=== PATIENT | female | born 1950 | race Caucasian/White ===

== ENCOUNTER 2017-06-25 18:49 | Emergency (ER) | payer MEDICARE ==
[~2017-06-25] VITALS: Ht 170.2 cm; Wt 75.0 kg
[~2017-06-25 18:49] MED LIST: ASPIRIN ADULT L81 MG; COUMADIN7.5 MG PO; CRESTOR10 MG PO; LEXAPRO10 MG PO; LEXAPRO20 MG PO; LORTAB 10 PO; PREMARIN0.3 MG PO; PROTONIX40 M2 PO; PROTONIX40 MG PO; TRAVATAN0.0041 OP; TRAZODONE300 MG PO; TYLENOL # 31 TA1 PO; VENTOLIN HFA IN; WELLBUTRIN SR150 MG PO; XANAX1 MG PO
[2017-06-25] MEDS ORDERED: PROAIR HFA108 MCG/AC PO (20:32)
[2017-06-25] MEDS ORDERED: TESSALON PERLE100 MG PO (20:32)
[2017-06-25 20:45] VITALS: BP 101/71
== END 2017-06-25 20:39 | disposition home or self-care (01) ==
LOC: ED 18:49
DX: J44.9 Chronic obstructive pulmonary disease, unspecified (principal); R05 Cough; F32.9 Major depressive disorder, single episode, unspecified; Z95.2 Presence of prosthetic heart valve

== ENCOUNTER 2023-04-03 13:21 | Emergency (ER) | payer MEDICARE ==
[2023-04-03] VITALS (8 sets, daily range): BP systolic 104–138; BP diastolic 42–81
[~2023-04-03] VITALS: Ht 170.2 cm; Wt 79.8 kg
[~2023-04-03 13:21] MED LIST changes: +PROAIR HFA108 MCG/AC PO; +TESSALON PERLE100 MG PO
[2023-04-03] MEDS ORDERED: ORPHENADRINE CITRATE 30 MG/ML AMP IM ONE (14:00)
[2023-04-03] MEDS ORDERED: HYDROcodone 7.5 MG/Acetaminophen 325 MG/COMBO PO ONE (14:00)
[2023-04-03] MEDS ORDERED: MEDDOSEPAK PO (15:37)
[2023-04-03] MEDS ORDERED: METHOCARBAMOL500 MG PO (15:37)
[2023-04-03] MEDS ORDERED: TRAMADOL HYDROC50 M1 PO (15:37)
== END 2023-04-03 16:06 | disposition home or self-care (01) ==
LOC: ED 13:21
DX: M53.3 Sacrococcygeal disorders, not elsewhere classified (principal); J44.9 Chronic obstructive pulmonary disease, unspecified; F32.A Depression, unspecified; W01.0XXA Fall on same level from slipping, tripping and stumbling without subsequent striking against object, initial encounter; Y92.009 Unspecified place in unspecified non-institutional (private) residence as the place of occurrence of the external cause; Z95.2 Presence of prosthetic heart valve

== ENCOUNTER 2024-02-18 15:03 | Emergency (ER) | payer MEDICARE ==
[~2024-02-18] VITALS: Ht 170.2 cm; Wt 78.0 kg
[2024-02-18] VITALS (19 sets, daily range): BP systolic 67–148; BP diastolic 49–87
[~2024-02-18 15:03] MED LIST changes: +MEDDOSEPAK PO; +METHOCARBAMOL500 MG PO; +TRAMADOL HYDROC50 M1 PO
[2024-02-18] MEDS ORDERED: ONDANSETRON HCl 4 MG/2 ML SDV IV STA (16:01)
[2024-02-18] MEDS ORDERED: SODIUM CHLORIDE 0.9% 1,000 ML IV STA (16:01)
[2024-02-18 16:35] LABS: BASO% 0.5 % (0-3); EOS% 0.8 % (0-8); HEMATOCRIT 36.6 % (37.0-47.0); HEMOGLOBIN 11.4 g/dl (12.0-16.0); IMMATURE GRANULOCYTES 0.2 % (0.0-5.0); LYMPH% 21.3 % (15-41); MEAN CELL VOLUME 89.5 fL CALC (80.0-100.0); MEAN CORPUSCULAR HGB 27.9 pG CALC (26.0-32.0); MEAN CORPUSCULAR HGB CONC 31.1 g/dL CAL (32.0-36.0); MONO% 8.1 % (2-13); NEUT# 4.43 thou/uL (2.00-7.15); NEUT% 69.1 % (42-76); RED BLOOD COUNT 4.09 mill/uL (4.20-5.60); RED CELL DISTRI WIDTH 14.9 % (11.5-15.5)
[2024-02-18 16:44] LABS: ALBUMIN 4.6 g/dL (3.2-5.0); ALKALINE PHOSPHATASE 101 u/l (38-126); ANION GAP 13 (6-22 (CALC)); BUN 31 mg/dL (8-23); BUN/CREATININE RATIO 15 (12-20 (CALC)); CARBON DIOXIDE 32 mmol/l (22-30); CHLORIDE 99 mmol/l (95-108); ESTIMATED GFR 26 ML/MIN (>=90 (CALC)); LIPASE 286 u/l (23-300); POTASSIUM 3.9 mmol/l (3.5-5.1); SODIUM 139 mmol/l (137-146); TOTAL PROTEIN 7.5 g/dL (6.3-8.2)
[2024-02-18 16:51] LABS: BILIRUBIN, TOTAL 1.2 mg/dL (0.02-1.3); SGOT/AST 45 u/l (9-36)
[2024-02-18] MEDS ORDERED: SODIUM CHLORIDE 0.9% 1,000 ML IV ONE (17:55)
[2024-02-18] MEDS ORDERED: Polyethylene Glycol 3350 17 GM/PKT PO ONE (19:15)
[2024-02-18] MEDS ORDERED: LACTULOSE 20 GM/30 ML UDC PO ONE (19:15)
[2024-02-18] MEDS ORDERED: MAGNESIUM HYDROXIDE 30 ML UDC PO ONE (19:15)
[2024-02-18] MEDS ORDERED: KRISTALOSE20 GM PO (19:26)
[2024-02-18] MEDS ORDERED: ZOFRAN4 MG/TAB PO (19:32)
[2024-02-22] MEDS ORDERED: CONSTULOSE10 GM/15 M PO (10:36)
== END 2024-02-18 20:00 | disposition home or self-care (01) ==
LOC: ED 15:03
PROVIDERS: Nurse Practitioner
DX: K59.00 Constipation, unspecified (principal); R11.2 Nausea with vomiting, unspecified; J44.9 Chronic obstructive pulmonary disease, unspecified; F32.A Depression, unspecified; Z95.2 Presence of prosthetic heart valve
CPT/HCPCS: J2405

== ENCOUNTER 2024-05-11 10:01 | Emergency (ER) | payer MEDICARE ==
[~2024-05-11] VITALS: Ht 170.2 cm; Wt 72.0 kg
[2024-05-11] VITALS (21 sets, daily range): BP systolic 61–151; BP diastolic 30–94
[~2024-05-11 10:01] MED LIST changes: +CONSTULOSE10 GM/15 M PO; +KRISTALOSE20 GM PO; +ZOFRAN4 MG/TAB PO
[2024-05-11] MEDS ORDERED: oxyCODONE HCL 5 MG/TAB PO ONE (11:55)
== END 2024-05-11 15:01 | disposition home or self-care (01) ==
LOC: ED 10:01
DX: M47.817 Spondylosis without myelopathy or radiculopathy, lumbosacral region (principal); J90 Pleural effusion, not elsewhere classified; R05.9 Cough, unspecified; J44.9 Chronic obstructive pulmonary disease, unspecified; F32.A Depression, unspecified; Z95.2 Presence of prosthetic heart valve; S22.089D Unspecified fracture of T11-T12 vertebra, subsequent encounter for fracture with routine healing; X58.XXXD Exposure to other specified factors, subsequent encounter